=== PATIENT | male | born 1970 | race Caucasian/White ===

== ENCOUNTER 2017-04-14 11:41 | Emergency (ER) | payer MEDICARE, MEDICAID ==
[~2017-04-14] VITALS: Ht 167.6 cm; Wt 68.0 kg
[2017-04-14] MEDS ORDERED: oxyCODONE/APAP (5/325 MG) 1 UDTAB TABLET ONE ×3 (11:44→20:26)
--- NOTE | 2017-04-14 11:45 | NUR ---
joana bond from home for withdrawal from oxycontin. Awaiting md order.
--- NOTE | 2017-04-14 11:47 | NUR ---
dr chilel at bedside for eval
[2017-04-14] MEDS ORDERED: LORAZEPAM 1 MG TABLET ONE ×2 (11:50→20:26)
[2017-04-14] MEDS ORDERED: LORAZEPAM 1 MG TABLET PO ONE ×2 (12:00→20:30)
[2017-04-14] MEDS ORDERED: oxyCODONE/APAP (5/325 MG) 1 UDTAB TABLET PO ONE ×3 (12:00→20:30)
--- NOTE | 2017-04-14 12:00 | NUR ---
REFUSED BLOOD DRAWN PER LAB
--- NOTE | 2017-04-14 12:19 | NUR ---
PLACED ON A HOLD BY TIFFANY FLANNERY ASKED FOR A 1:1 SITTER
--- NOTE | 2017-04-14 14:26 | NUR ---
LAB ATTEMPTED TO DRAW BLOOD, REFUSED
--- NOTE | 2017-04-14 16:06 | NUR ---
SITTING IN A CHAIR FOR COMFORT, 1:1 SITTER AT BEDSIDE, OFFERED FOOD TRAY
--- NOTE | 2017-04-14 16:17 | NUR ---
REQUESTING FOR PAIN MEDICATION, DR MOSES INFORMED
[2017-04-14 17:41] LABS: BASOPHILS # (AUTO) 0.3 /CMM (0.0-0.2); BASOPHILS % (AUTO) 2.8 % (0.0-2.0); EOSINOPHILS # (AUTO) 0.1 /CMM (0.0-0.7); EOSINOPHILS % (AUTO) 0.8 % (0.0-6.0); HEMATOCRIT 48 % (39-51); HEMOGLOBIN 15.8 g/dL (13.5-17.5); LYMPHOCYTES % (AUTO) 24.5 % (20.0-44.0); MEAN CORPUSCULAR HEMOGLOBIN 30 PG (26.0-33.0); MEAN CORPUSCULAR HGB CONC 33 g/dl (31.0-36.0); MEAN CORPUSCULAR VOLUME 91 fL (80-96); MONOCYTES # (AUTO) 0.6 /CMM (0.1-1.30); MONOCYTES % (AUTO) 5.2 % (2.0-12.0); NEUTROPHILS # (AUTO) 8.3 /CMM (1.8-8.9); NEUTROPHILS % (AUTO) 66.7 % (43.0-81.0); PLATELET COUNT (AUTO) 347 /CMM (150-450); RDW COEFFICIENT OF VARIATION 13.5 (11.5-15.0); RED BLOOD CELL COUNT(AUTO) 5.29 MIL/uL (4.5-6.0); WHITE BLOOD COUNT (AUTO) 12.3 K/uL (4.3-11.0)
[2017-04-14 17:52] LABS: CALCIUM, SERUM 9.1 mg/dL (8.5-10.1); CARBON DIOXIDE 26 mmol/L (21-32); CHLORIDE 104 mmol/L (98-107); GLUCOSE 103 mg/dL (74-106); POTASSIUM 3.8 mmol/L (3.5-5.1); SODIUM SERUM 139 mmol/L (136-145); UREA NITROGEN, BLOOD 21 mg/dL (7-18)
[2017-04-14 17:58] LABS: ALANINE AMINOTRANSFERASE 32 U/L (12-78); ALBUMIN 4.3 g/dL (3.4-5.0); ALCOHOL, BLOOD < 3 mg/dL (0-0); ALKALINE PHOSPHATASE 91 U/L (46-116); ASPARTATE AMINOTRANSFERASE 15 U/L (15-37); BILIRUBIN,DIRECT 0.1 mg/dL (0.0-0.2); BILIRUBIN,TOTAL 0.6 mg/dL (0.2-1.0); TOTAL PROTEIN, SERUM 8.1 g/dL (6.4-8.2)
[2017-04-14 18:00] LABS: ACETAMINOPHEN < 2 ug/ml (10-30); SALICYLATE 2.1 mg/dL (2.8-20.0)
--- NOTE | 2017-04-14 19:20 | NUR ---
CALLED [facility] FOR PSYCH EVAL, ETA WITHIN THE HOUR
--- NOTE | 2017-04-14 22:11 | NUR ---
CARLYN FROM [facility] DENIED PT
--- NOTE | 2017-04-15 05:37 | NUR ---
pt sleeping in [place]. no signs of distress noted. pt vital signs stable. 1:1 sitter at bedside. will cont to monitor pt.
[2017-04-15 06:47] LABS: APPEARANCE,URINE CLEAR (CLEAR); BILIRUBIN,URINE NEGATIVE (NEGATIVE); BLOOD, URINE NEGATIVE Ery/uL (NEGATIVE); COLOR,URINE YELLOW (YELLOW); KETONES,URINE NEGATIVE (NEGATIVE); LEUKOCYTE ESTERASE ,URINE NEGATIVE (NEGATIVE); NITRITE, URINE NEGATIVE (NEGATIVE); PROTEIN,URINE NEGATIVE (NEGATIVE); UGLUCOSE NEGATIVE (NEGATIVE); UROBILINOGEN,URINE 0.2 EU/dL (0.2)
--- NOTE | 2017-04-15 07:37 | NUR ---
Patient is resting comfortably in bed with eyes closed. Easily aroused. VSS. PT TRANSFERED TO ROOM 06 CLOSER TO NURSING STATION FOR CLOSE OBSERVATION AND SI PRECAUTIONS. NO 1:1 SITTER AVAILABLE.
--- NOTE | 2017-04-15 07:59 | NUR ---
No sitters available per ellie Naylor sup.
--- NOTE | 2017-04-15 08:36 | NUR ---
PT SLEEPING SOUNDLY RESP EVEN UNLABORED
[2017-04-15 11:25] VITALS: BP 123/56
--- NOTE | 2017-04-15 12:01 | NUR ---
SPOKE WITH VU WITH INTAKE AT [facility]. PER HER REQUEST FAXED OVER LATEST LABS [facility] IMAGING AND AWAITING CONFIRMATION ON ACCEPTANCE OF PATIENT
--- NOTE | 2017-04-15 12:19 | NUR ---
PLACED AMBULANCE ON WILL CALL WITH [facility]
--- NOTE | 2017-04-15 12:32 | NUR ---
RECEIVED CALL FROM RAY FROM INTAKE. DR PAOLA CARROLL ACCEPTING AT [facility]. [phone] [id number]. NUMBER TO CALL REPORT [phone] - THEN ASK TO BE TRANSFERED TO [address] [place] [address].
--- NOTE | 2017-04-15 12:34 | NUR ---
CALLED [facility] TO ACTIVATE WILL CALL. ETA FOR [facility] IS 30 MINUTES
--- NOTE | 2017-04-15 12:59 | NUR ---
REPORT GIVEN TO LINSEY [phone]
--- NOTE | 2017-04-15 13:01 | NUR ---
SPOKE TO WOO, , , INFORMED THAT PATIENT IS GETTING TRANSFERRED TO [facility]
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
== END 2017-04-15 13:39 ==
LOC: ER 11:42
DX: R45.851 Suicidal ideations (principal); R45.1 Restlessness and agitation; G43.909 Migraine, unspecified, not intractable, without status migrainosus; M54.9 Dorsalgia, unspecified; G89.29 Other chronic pain; Z88.1 Allergy status to other antibiotic agents; Z98.890 Other specified postprocedural states; Z91.19 Patient's noncompliance with other medical treatment and regimen
CPT/HCPCS: 36415; 71010-TC; 80048-TC; 80076-TC; 80305; 81000-TC; 85025-TC; A4606; G0480; Z7610

== ENCOUNTER 2017-04-15 16:17 | Emergency (ER) | payer MEDICARE, MEDICAID ==
[~2017-04-15] VITALS: Ht 167.6 cm; Wt 68.0 kg
[2017-04-15 16:19] VITALS: BP 139/86
--- NOTE | 2017-04-15 16:19 | NUR ---
pt ke. was refused admitance to [facility] because of anxiety and shaking. pt in on a 5150 hold. placed on monitor. awaiting md braxton.
[2017-04-15] MEDS ORDERED: LORAZEPAM INJ 2 MG/ML VIAL ONE (17:08)
--- NOTE | 2017-04-15 17:17 | NUR ---
medicated as ordered. see emar.
[2017-04-15] MEDS ORDERED: LORAZEPAM INJ 2 MG/ML VIAL IM ONE (17:30)
--- NOTE | 2017-04-15 17:40 | NUR ---
[facility] TO [facility]. ETA 1 HOUR
--- NOTE | 2017-04-15 18:32 | NUR ---
pt transfered to [facility]. stable condition.
== END 2017-04-15 18:34 ==
LOC: ER 16:24
DX: R45.851 Suicidal ideations (principal); R45.1 Restlessness and agitation; G43.909 Migraine, unspecified, not intractable, without status migrainosus; G89.29 Other chronic pain; F32.9 Major depressive disorder, single episode, unspecified; F41.9 Anxiety disorder, unspecified; F17.200 Nicotine dependence, unspecified, uncomplicated; M54.2 Cervicalgia; Z88.1 Allergy status to other antibiotic agents; Z98.890 Other specified postprocedural states
CPT/HCPCS: A4606; J2060; Z7610

== ENCOUNTER 2025-05-06 04:20 | Emergency (ER) | payer BC, MEDICARE, OTHER ==
[~2025-05-06] VITALS: Ht 177.8 cm; Wt 90.7 kg
[2025-05-06 04:54] VITALS: BP 150/88; TEMP 98; O2SAT 98
== END 2025-05-06 04:55 ==
LOC: ER 04:22
DX: G89.29 Other chronic pain (principal); F11.20 Opioid dependence, uncomplicated; G43.909 Migraine, unspecified, not intractable, without status migrainosus; F19.10 Other psychoactive substance abuse, uncomplicated; Z88.1 Allergy status to other antibiotic agents; Z87.39 Personal history of other diseases of the musculoskeletal system and connective tissue